=== PATIENT | male | born 1945 | race Two or more races ===

== ENCOUNTER 2017-07-07 11:30 | Outpatient (CLI) | payer OTHER | END 2017-07-07 11:54 | disposition home or self-care (01) | LOC: TOM 11:30 | DX: R10.9 Unspecified abdominal pain (principal) ==

== ENCOUNTER 2017-10-31 11:58 | Inpatient (IN) | payer OTHER ==
[~2017-10-31] VITALS: Ht 170.2 cm; Wt 72.6 kg
[2017-10-31] MEDS ORDERED: NEURONTIN600 MG PO (12:13)
[2017-10-31] MEDS ORDERED: LANTUS SOL100 UNIT/1 SUBCUTANEO (12:13)
[2017-10-31] MEDS ORDERED: PLAVIX75 MG PO (12:14)
[2017-10-31] MEDS ORDERED: IRBESARTAN-HCT1 EAC1 PO (12:14)
[2017-10-31] MEDS ORDERED: AMLODIPINE BESYL5 MG PO (12:14)
[2017-10-31] MEDS ORDERED: CILOSTAZOL100 MG PO (12:14)
[2017-11-11] MEDS ORDERED: ISOSORBIDE MONO30 MG PO (10:49)
[2017-11-11] MEDS ORDERED: AMLODIPINE BESYL5 MG PO (10:49)
[2017-11-11] MEDS ORDERED: INTEGRA F CAPS1 EACH PO (10:49)
[2017-11-11] MEDS ORDERED: Coreg 12.5MG TABLET PO (10:49)
[2017-11-11] MEDS ORDERED: ASPIR 8181 MG PO (10:49)
[2017-11-11] MEDS ORDERED: CLOPIDOGREL BIS75 MG PO (10:49)
[2017-11-11] MEDS ORDERED: COLCHICINE0.6 MG PO (10:49)
[2017-11-11] MEDS ORDERED: LIPITOR20 MG PO (10:49)
== END 2017-11-11 14:08 | disposition home or self-care (01) | DRG 280 ==
LOC: ER 11:58 → SEC-K 17:25 → ICU-2 17:25 → MEDJ 18:23 → ICU-2 18:55 → SURH 11-05 15:40 → MEDI 11-05 15:40 → SURH 11-05 15:40
PROC: 30233N1 Transfusion of Nonautologous Red Blood Cells into Peripheral Vein, Percutaneous Approach (ICD-10-PCS; principal; 2017-10-31)
PROC: 4A033R1 Measurement of Arterial Saturation, Peripheral, Percutaneous Approach (ICD-10-PCS; 2017-10-31)
PROC: B246ZZZ Ultrasonography of Right and Left Heart (ICD-10-PCS; 2017-10-31)
PROC: BW24ZZZ Computerized Tomography (CT Scan) of Chest and Abdomen (ICD-10-PCS; 2017-11-02)
PROC: 8E0ZXY6 Isolation (ICD-10-PCS; 2017-11-04)
PROC: 4A12X4Z Monitoring of Cardiac Electrical Activity, External Approach (ICD-10-PCS; 2017-11-05)
PROC: C23GYZZ Positron Emission Tomographic (PET) Imaging of Myocardium using Other Radionuclide (ICD-10-PCS; 2017-11-09)
PROC: 4A12XM4 Monitoring of Cardiac Stress, External Approach (ICD-10-PCS; 2017-11-09)
PROC: 3E033HZ Introduction of Radioactive Substance into Peripheral Vein, Percutaneous Approach (ICD-10-PCS; 2017-11-09)
DX: I21.A1 Myocardial infarction type 2 (principal); J10.00 Influenza due to other identified influenza virus with unspecified type of pneumonia; N18.4 Chronic kidney disease, stage 4 (severe); N17.8 Other acute kidney failure; E11.22 Type 2 diabetes mellitus with diabetic chronic kidney disease; E11.65 Type 2 diabetes mellitus with hyperglycemia; I12.9 Hypertensive chronic kidney disease with stage 1 through stage 4 chronic kidney disease, or unspecified chronic kidney disease; D63.1 Anemia in chronic kidney disease; E11.21 Type 2 diabetes mellitus with diabetic nephropathy; E11.42 Type 2 diabetes mellitus with diabetic polyneuropathy; E78.4 Other hyperlipidemia

== ENCOUNTER 2018-10-01 13:02 | Emergency (ER) | payer OTHER ==
[~2018-10-01] VITALS: Ht 167.6 cm; Wt 68.0 kg
[~2018-10-01 13:02] MED LIST: AMLODIPINE BESYL5 MG PO; ASPIR 8181 MG PO; CILOSTAZOL100 MG PO; CLOPIDOGREL BIS75 MG PO; COLCHICINE0.6 MG PO; Coreg 12.5MG TABLET PO; INTEGRA F CAPS1 EACH PO; IRBESARTAN-HCT1 EAC1 PO; ISOSORBIDE MONO30 MG PO; LANTUS SOL100 UNIT/1 SUBCUTANEO; LIPITOR20 MG PO; NEURONTIN600 MG PO; PLAVIX75 MG PO
[2018-10-01] MEDS ORDERED: PRILOSEC OTC20 MG (13:16)
[2018-10-01] MEDS ORDERED: APRESOLINE 10MG10 MG (13:17)
== END 2018-10-01 16:42 | disposition home or self-care (01) ==
LOC: ER 13:02
DX: R07.89 Other chest pain (principal); D64.89 Other specified anemias

== ENCOUNTER 2018-10-30 15:49 | Outpatient (CLI) | payer OTHER ==
[~2018-10-30 15:49] MED LIST changes: +APRESOLINE 10MG10 MG; +PRILOSEC OTC20 MG
== END 2018-10-30 16:53 | disposition home or self-care (01) ==
LOC: RAD 15:49
DX: Z01.811 Encounter for preprocedural respiratory examination (principal)

== ENCOUNTER → 2019-01-11 | Emergency (ER) | payer OTHER ==
[~2019-01-11] VITALS: Ht 167.6 cm; Wt 68.0 kg
== END | disposition designated cancer center or children's hospital (05) ==
LOC: ER 14:39 → CPU-OBS 14:59
DX: I21.4 Non-ST elevation (NSTEMI) myocardial infarction (principal); I10 Essential (primary) hypertension; R10.13 Epigastric pain